=== PATIENT | female | born 1955 ===

== ENCOUNTER 2016-07-09 11:39 | Emergency (ER) | payer SELFPAY ==
[~2016-07-09] VITALS: Ht 175.3 cm; Wt 59.0 kg
[2016-07-09 11:43] VITALS: Ht 175.3 cm; Wt 59.0 kg
== END 2016-07-09 15:49 | disposition left against medical advice (07) ==
LOC: E/R 11:39
DX: Z53.21 Procedure and treatment not carried out due to patient leaving prior to being seen by health care provider (principal)
CPT/HCPCS: 93005